=== PATIENT | male | born 1950 | race Caucasian/White ===

== ENCOUNTER 2017-04-04 14:28 | Inpatient (IN) | payer OTHER, MEDICARE ==
[~2017-04-04] VITALS: Ht 5703.2 cm; Wt 102.3 kg
[~2017-04-04 14:28] MED LIST: ATEN25TA PO; BUSP15TA12 PO; CITA40TA22 PO; DOCU100C40 PO; LEVO175T2 PO; LISI-604 PO; LORA0.5T PO; MAGN420T PO; METF1000 PO; RANI300C PO; SIMV20TA5 PO; TRAZ-143 PO
[2017-04-04 15:09] LABS: BASOPHILS % (AUTO) 0.7 % (0-1); EOSINOPHILS # (AUTO) 0.1 X10'3 (0-0.9); EOSINOPHILS % (AUTO) 1.8 % (0-6); HEMATOCRIT 36.7 % (42.0-52.0); HEMOGLOBIN 12.2 g/dl (14.0-17.9); LYMPHOCYTES # (AUTO) 1.7 X10'3 (1.1-4.8); LYMPHOCYTES % (AUTO) 25.4 % (21-51); MEAN CORPUSCULAR HEMOGLOBIN 31.8 PG (27.0-31.0); MEAN CORPUSCULAR HGB CONC 33.3 % (33.0-36.5); MEAN CORPUSCULAR VOLUME 95.5 FL (78-98); MEAN PLATELET VOLUME 6.7 FL (7.4-10.4); MONOCYTES # (AUTO) 0.7 X10'3 (0-0.9); MONOCYTES % (AUTO) 11.3 % (2-12); NEUTROPHILS % (AUTO) 60.8 % (42-75); PLATELET COUNT 234 X10'3 (140-440); RED BLOOD COUNT 3.84 X10'6 (4.70-6.10); RED CELL DISTRIBUTION WIDTH 13.3 % (11.5-14.5); WHITE BLOOD COUNT 6.6 X10'3 (4.5-11.0)
[2017-04-04] MEDS ORDERED: aspirin 81mg tab.chew PO ONE (15:20)
[2017-04-04] MEDS ORDERED: nitroGLYCERIN 0.4mg SUBLingual tab SL PRN ×2 (15:20→16:00)
[2017-04-04 15:25] LABS: ALANINE AMINOTRANSFERASE 27 U/L (12-78); ALBUMIN 3.5 G/DL (3.4-5.0); ALBUMIN/GLOBULIN RATIO 0.8 (1.1-1.5); ALKALINE PHOSPHATASE 80 IU/L (46-116); ANION GAP 4 (8-16); ASPARTATE AMINO TRANSFERASE 12 U/L (10-37); BILIRUBIN,TOTAL 0.2 MG/DL (0.1-1.0); BLOOD UREA NITROGEN 18 MG/DL (7-18); BUN/CREATININE RATIO 17.6 (5.4-32.0); CALCIUM 9.3 MG/DL (8.5-10.1); CHLORIDE 106 MMOL/L (99-107); CREATININE 1.02 MG/DL (0.60-1.10); GLUCOSE 115 MG/DL (70-104); POTASSIUM 4.3 MMOL/L (3.5-5.1); SODIUM 140 MMOL/L (135-145); TOTAL CARBON DIOXIDE 30.4 MMOL/L (24-32); TOTAL PROTEIN 7.7 G/DL (6.4-8.2); eGFR 73 ML/MIN
[2017-04-04 15:31] LABS: MAGNESIUM 1.9 MG/DL (1.5-2.4)
[2017-04-04] MEDS: nitroGLYCERIN 0.4mg SUBLingual tab SL PRN ×2 (15:42→16:17)
[2017-04-04] MEDS ORDERED: aminophylline 250mg/10ml inj. IV PRN (16:00)
[2017-04-04] MEDS ORDERED: ondansetron/PF 4mg/2ml inj IV PRN (16:00)
[2017-04-04] MEDS ORDERED: magnesium Cl slow-release 64mg tablet PO PRN (16:00)
[2017-04-04] MEDS ORDERED: insulin Lispro (HumaLOG) vial - multi-dose SQ SCH (16:00)
[2017-04-04] MEDS ORDERED: magnesium 4gm in 100ml NS 100 ML IV PRN (16:00)
[2017-04-04] MEDS ORDERED: dextrose ORAL solution 15 GM/59 ML bottle PO PRN ×2 (16:00)
[2017-04-04] MEDS ORDERED: MESSAGE TO PHARMACY PO ONE (16:00)
[2017-04-04] MEDS ORDERED: magnesium 2GM in 50ml NS 50 ML IV PRN (16:00)
[2017-04-04] MEDS ORDERED: metoprolol tartrate 1mg/ml inj IV PRN (16:00)
[2017-04-04] MEDS ORDERED: acetaminophen 325mg tablet PO PRN (16:00)
[2017-04-04] MEDS ORDERED: HYDROcodone/acetaminophen 10/325mg tab PO PRN (16:00)
[2017-04-04] MEDS ORDERED: dextrose 50%-water 50ml dispensing syringe IV PRN ×2 (16:00)
[2017-04-04] MEDS ORDERED: HYDROcodone/acetaminophen 5mg/325mg tablet PO PRN (16:00)
[2017-04-04] MEDS ORDERED: regadenoson 0.4mg/5ml syringe IV PRN (16:00)
[2017-04-04] MEDS ORDERED: HYDROmorphone 1 mg/ml syringe IV PRN ×2 (16:00)
[2017-04-04] MEDS ORDERED: mag hydrox/Alum hydrox/simeth 30ml oral suspension PO PRN (16:00)
[2017-04-04] MEDS ORDERED: potassium Cl 40MEQ/NS 500ml 500 ML IV PRN ×2 (16:00)
[2017-04-04] MEDS ORDERED: magnesium hydroxide 30ml (MOM) UD suspension PO PRN (16:00)
[2017-04-04] MEDS ORDERED: potassium Cl 20 mEq SR tablet PO PRN ×2 (16:00)
[2017-04-04] MEDS ORDERED: glucagon, human recombinant 1mg kit SUBCUT PRN (16:00)
[2017-04-04 17:09] LABS: D-DIMER < 0.19 MG/L FEU (0-0.50)
[2017-04-04] MEDS ORDERED: OXYC-658 PO (18:40)
[2017-04-04] MEDS ORDERED: NITR0.4T51 SL (18:40)
[2017-04-04] MEDS ORDERED: MORP30TA PO (18:40)
[2017-04-04] MEDS ORDERED: VITA400C65 (18:40)
[2017-04-04] MEDS: metoprolol tartrate 25mg tablet PO SCH (20:06)
[2017-04-04 20:40] VITALS: BP 119/65
[2017-04-04] MEDS ORDERED: atorvastatin 10mg tablet PO SCH (21:00)
[2017-04-04] MEDS ORDERED: Insulin Detemir pen SQ SCH (21:00)
[2017-04-04] MEDS ORDERED: traZODone 50mg tablet PO SCH (21:00)
[2017-04-04] MEDS ORDERED: famotidine 20mg tablet PO SCH (21:00)
[2017-04-04] MEDS ORDERED: citalopram 20mg tablet PO SCH (21:00)
[2017-04-04] MEDS: busPIRone 15mg tablet PO SCH (21:52)
[2017-04-04] MEDS ORDERED: oxyCODONE IR 5mg (immed. release) tablet PO PRN (22:20)
[2017-04-04 23:00] VITALS: BP 97/54
[2017-04-05] VITALS (10 sets, daily range): BP systolic 95–114; BP diastolic 51–74
[2017-04-05 03:03] LABS: BASOPHILS % (AUTO) 0.6 % (0-1); EOSINOPHILS # (AUTO) 0.1 X10'3 (0-0.9); EOSINOPHILS % (AUTO) 2.7 % (0-6); HEMATOCRIT 35.3 % (42.0-52.0); HEMOGLOBIN 11.9 g/dl (14.0-17.9); LYMPHOCYTES # (AUTO) 1.6 X10'3 (1.1-4.8); LYMPHOCYTES % (AUTO) 37.4 % (21-51); MEAN CORPUSCULAR HGB CONC 33.8 % (33.0-36.5); MEAN CORPUSCULAR VOLUME 94.8 FL (78-98); MEAN PLATELET VOLUME 6.8 FL (7.4-10.4); MONOCYTES # (AUTO) 0.6 X10'3 (0-0.9); MONOCYTES % (AUTO) 12.7 % (2-12); NEUTROPHILS % (AUTO) 46.6 % (42-75); PLATELET COUNT 214 X10'3 (140-440); RED BLOOD COUNT 3.72 X10'6 (4.70-6.10); RED CELL DISTRIBUTION WIDTH 13.3 % (11.5-14.5); WHITE BLOOD COUNT 4.4 X10'3 (4.5-11.0)
[2017-04-05 03:20] LABS: ALBUMIN 3.2 G/DL (3.4-5.0); ANION GAP 7 (8-16); BLOOD UREA NITROGEN 16 MG/DL (7-18); BUN/CREATININE RATIO 16.5 (5.4-32.0); CALCIUM 8.7 MG/DL (8.5-10.1); CHLORIDE 105 MMOL/L (99-107); CREATININE 0.97 MG/DL (0.60-1.10); GLUCOSE 103 MG/DL (70-104); MAGNESIUM 1.9 MG/DL (1.5-2.4); POTASSIUM 3.8 MMOL/L (3.5-5.1); SODIUM 140 MMOL/L (135-145); TOTAL CARBON DIOXIDE 28.3 MMOL/L (24-32); eGFR 77 ML/MIN
[2017-04-05] MEDS: busPIRone 15mg tablet PO SCH ×2 (07:52→13:00)
[2017-04-05] MEDS: metoprolol tartrate 25mg tablet PO SCH (07:53)
[2017-04-05] MEDS ORDERED: magnesium oxide 400mg tablet PO SCH (08:00)
[2017-04-05] MEDS ORDERED: docusate sod 100mg capsule PO SCH (08:00)
[2017-04-05] MEDS ORDERED: morphine IR (immed. release) 30mg tablet PO SCH (08:00)
[2017-04-05] MEDS ORDERED: LORazepam 0.5 MG tablet PO SCH (08:00)
[2017-04-05] MEDS ORDERED: K and/or MAG REPLACEMENT MC SCH (08:00)
[2017-04-05] MEDS ORDERED: enoxaparin 40mg/0.4ml syringe SUBCUT SCH (08:00)
[2017-04-05] MEDS ORDERED: lisinopril 5mg tablet PO SCH (08:00)
[2017-04-05] MEDS ORDERED: morphine ER 30mg tablet PO SCH (08:00)
[2017-04-05] MEDS ORDERED: levoTHYROXINE 175mcg tablet PO SCH (08:00)
[2017-04-05] MEDS ORDERED: aspirin 325mg tablet PO SCH (08:30)
[2017-04-05] MEDS ORDERED: regadenoson 0.4mg/5ml syringe IV ONE (09:16)
[2017-04-05] MEDS ORDERED: aminophylline inj. 0 ML IV ONE (09:16)
== END 2017-04-05 14:02 | disposition home or self-care (01) | DRG 313 ==
LOC: ER 14:28 → ED HOLD 16:06 → PCU 3S 20:30
PROVIDERS: ADMIT Internal Medicine; ATTEND Internal Medicine
PROC: 4A02XM4 Measurement of Cardiac Total Activity, External Approach (ICD-10-PCS; principal; 2017-04-05)
PROC: 3E073KZ Introduction of Other Diagnostic Substance into Coronary Artery, Percutaneous Approach (ICD-10-PCS; 2017-04-05)
DX: R07.89 Other chest pain (principal); I25.2 Old myocardial infarction; E03.9 Hypothyroidism, unspecified; E11.9 Type 2 diabetes mellitus without complications; E78.5 Hyperlipidemia, unspecified; F41.8 Other specified anxiety disorders; G89.29 Other chronic pain; M54.9 Dorsalgia, unspecified; I10 Essential (primary) hypertension; K21.9 Gastro-esophageal reflux disease without esophagitis; Z79.899 Other long term (current) drug therapy; Z79.84 Long term (current) use of oral hypoglycemic drugs; Z87.442 Personal history of urinary calculi
CPT/HCPCS: 36415; 71010; 78452; 80048; 80053; 82948; 83036; 83735; 83880; 84484; 85025; 85379; 85610; 87070; 93017; 93306; 99285; A9500; J0280; J1650; J2785; J7030

== ENCOUNTER 2021-02-22 12:34 | Emergency (ER) | payer OTHER, MEDICARE ==
[~2021-02-22] VITALS: Ht 170.2 cm; Wt 118.2 kg
[~2021-02-22 12:34] MED LIST changes: -ATEN25TA PO; -BUSP15TA12 PO; +BUSP15TA7 PO; -DOCU100C40 PO; -LISI-604 PO; +LISI5TAB22 PO; +MORP30TA PO; +NITR0.4T51 SL; +OXYC-658 PO; +SIMV-42 PO; -SIMV20TA5 PO; -TRAZ-143 PO; +TRAZ-251 PO; +VITA-134
[2021-02-22 14:13] VITALS: BP 126/78
--- NOTE | 2021-02-22 14:19 | NUR ---
Brought in by his grandson. Pt c/o new onset L calf pain after a [address] Denies new SOB.
[2021-02-22] MEDS ORDERED: HYDR-3568 PO (14:34)
[2021-02-22] MEDS ORDERED: CALC-492 PO (14:34)
--- NOTE | 2021-02-22 15:31 | NUR ---
Pt and grandson given and understands d/c instructions. Ambulatory with a cane.
== END 2021-02-22 15:33 | disposition home or self-care (01) ==
LOC: ER 12:35
DX: M79.662 Pain in left lower leg (principal); I25.2 Old myocardial infarction; Z87.442 Personal history of urinary calculi; Z79.899 Other long term (current) drug therapy
CPT/HCPCS: 93971; 99284

== ENCOUNTER 2021-11-23 14:52 | Observation (INO) | payer OTHER, MEDICARE ==
[~2021-11-23] VITALS: Ht 170.2 cm; Wt 114.0 kg
[~2021-11-23 14:52] MED LIST changes: +CALC-492 PO; +HYDR-3568 PO; -MAGN420T PO; -METF1000 PO; -MORP30TA PO; -NITR0.4T51 SL
--- NOTE | 2021-11-23 15:20 | NUR ---
Labs drawn and sent to lab.
[2021-11-23 15:29] LABS: BASOPHILS % (AUTO) 0.8 % (0-1); EOSINOPHILS # (AUTO) 0.1 X10'3 (0-0.9); EOSINOPHILS % (AUTO) 2.7 % (0-6); HEMATOCRIT 41.9 % (42.0-52.0); HEMOGLOBIN 14.7 g/dl (14.0-17.9); LYMPHOCYTES # (AUTO) 1.8 X10'3 (1.1-4.8); LYMPHOCYTES % (AUTO) 33.3 % (21-51); MEAN CORPUSCULAR HEMOGLOBIN 35.5 PG (27.0-31.0); MEAN CORPUSCULAR VOLUME 101.4 FL (78-98); MEAN PLATELET VOLUME 6.5 FL (7.4-10.4); MONOCYTES # (AUTO) 0.8 X10'3 (0-0.9); MONOCYTES % (AUTO) 14.3 % (2-12); NEUTROPHILS # (AUTO) 2.7 X10'3 (1.8-7.7); NEUTROPHILS % (AUTO) 48.9 % (42-75); PLATELET COUNT 208 X10'3 (140-440); RED BLOOD COUNT 4.14 X10'6 (4.70-6.10); RED CELL DISTRIBUTION WIDTH 13.8 % (11.5-14.5); WHITE BLOOD COUNT 5.5 X10'3 (4.5-11.0)
[2021-11-23 15:43] LABS: ALANINE AMINOTRANSFERASE 46 U/L (12-78); ALBUMIN 3.9 G/DL (3.4-5.0); ALBUMIN/GLOBULIN RATIO 1.1 (1.1-1.5); ALKALINE PHOSPHATASE 58 IU/L (46-116); ANION GAP 11 (8-16); ASPARTATE AMINO TRANSFERASE 24 U/L (10-37); BILIRUBIN,TOTAL 0.3 MG/DL (0.1-1.0); BLOOD UREA NITROGEN 24 MG/DL (7-18); BUN/CREATININE RATIO 13.3 (5.4-32.0); CALCIUM 9.3 MG/DL (8.5-10.1); CHLORIDE 105 MMOL/L (99-107); GLUCOSE 108 MG/DL (70-104); POTASSIUM 3.9 MMOL/L (3.5-5.1); SODIUM 143 MMOL/L (135-145); TOTAL CARBON DIOXIDE 26.7 MMOL/L (24-32); TOTAL PROTEIN 7.5 G/DL (6.4-8.2); eGFR 37 ML/MIN
[2021-11-23] MEDS ORDERED: ONDA-104 PO (15:48)
[2021-11-23] MEDS ORDERED: LENA10CA PO (15:48)
[2021-11-23] MEDS ORDERED: ASPI-1264 PO (15:48)
[2021-11-23] MEDS ORDERED: HYDR-3968 PO (15:48)
[2021-11-23] MEDS ORDERED: GABA-530 PO (15:48)
[2021-11-23] MEDS ORDERED: PROC10TA10 PO (15:48)
[2021-11-23] MEDS ORDERED: DULO-31 PO (15:48)
[2021-11-23] MEDS ORDERED: ZOLP5TAB8 PO (15:48)
[2021-11-23] MEDS ORDERED: METO-539 PO (15:48)
[2021-11-23] MEDS ORDERED: BUSP10TA11 PO (15:48)
[2021-11-23] MEDS ORDERED: ATOR10TA87 PO (15:48)
[2021-11-23] MEDS ORDERED: FAMO40TA58 PO (15:48)
[2021-11-23] MEDS ORDERED: morphine 2 MG/ML inj. syringe IV PRN ×2 (16:10)
[2021-11-23] MEDS ORDERED: HYDROcodone/acetaminophen 5mg/325mg tablet PO PRN (16:10)
[2021-11-23] MEDS ORDERED: acetaminophen 325mg tablet PO PRN (16:10)
[2021-11-23] MEDS ORDERED: magnesium hydroxide 30ml (MOM) UD suspension PO PRN (16:10)
[2021-11-23] MEDS ORDERED: mag hydrox/Alum hydrox/simeth 30ml oral suspension PO PRN (16:10)
[2021-11-23 16:28] LABS: HEMOGLOBIN A1C 5.7 % (4.5-6.2)
[2021-11-23] MEDS ORDERED: sodium bicarbonate (8.4%) inj. 150 MEQ in sodium chloride 0.45% 850 ML IV SCH (19:05)
[2021-11-23] MEDS: sodium bicarbonate (8.4%) inj. 150 MEQ in sodium chloride 0.45% 1,000 ML IV SCH ×2 (19:09→23:07)
--- NOTE | 2021-11-23 19:23 | NUR ---
Pt seen by Dr. Cerrato. to take Pt to [facility] tomorrow morning. MD gave verbal orders for Pt to be NPO after midnight, PBNP to be run with morning labs before procedure, Mucomyst 600 mg PO BID with first dose to start tonight, and Sodium Bicarb 150 mEq in 1/2 NS to run at 100 ml/hr, and patient to sign record label internship consent.
[2021-11-23] MEDS: acetylcysteine 200 MG/ml 4ml vial PO SCH ×2 (20:00→23:07)
[2021-11-23 21:30] VITALS: BP 146/91
[2021-11-23] MEDS: docusate sod 100mg capsule PO SCH (23:10)
[2021-11-24] VITALS (15 sets, daily range): BP systolic 92–139; BP diastolic 39–81
[2021-11-24] MEDS ORDERED: LEVO25TA7 PO (01:35)
[2021-11-24] MEDS ORDERED: FLO0.4C PO (01:35)
[2021-11-24] MEDS ORDERED: TRAZ300T2 PO (01:35)
[2021-11-24] MEDS ORDERED: TRAZ150T78 PO (01:35)
[2021-11-24] MEDS ORDERED: MORP-92 PO (01:35)
[2021-11-24] MEDS ORDERED: BUSP15TA3 PO (01:35)
[2021-11-24] MEDS ORDERED: METO-467 PO (01:35)
[2021-11-24] MEDS ORDERED: MULT-1085 PO (01:35)
[2021-11-24] MEDS ORDERED: GABA300C PO (01:35)
[2021-11-24] MEDS ORDERED: THIA100T70 PO (01:35)
[2021-11-24] MEDS ORDERED: CYCL-394 PO (01:35)
[2021-11-24 07:30] LABS: BASOPHILS % (AUTO) 0.8 % (0-1); EOSINOPHILS # (AUTO) 0.2 X10'3 (0-0.9); EOSINOPHILS % (AUTO) 4.4 % (0-6); HEMATOCRIT 40.2 % (42.0-52.0); HEMOGLOBIN 13.6 g/dl (14.0-17.9); LYMPHOCYTES # (AUTO) 1.5 X10'3 (1.1-4.8); LYMPHOCYTES % (AUTO) 35.6 % (21-51); MEAN CORPUSCULAR HEMOGLOBIN 34.6 PG (27.0-31.0); MEAN CORPUSCULAR HGB CONC 33.8 g/dL (33.0-36.5); MEAN CORPUSCULAR VOLUME 102.3 FL (78-98); MEAN PLATELET VOLUME 7.4 FL (7.4-10.4); MONOCYTES # (AUTO) 0.6 X10'3 (0-0.9); NEUTROPHILS # (AUTO) 1.9 X10'3 (1.8-7.7); NEUTROPHILS % (AUTO) 45.2 % (42-75); PLATELET COUNT 201 X10'3 (140-440); RED BLOOD COUNT 3.93 X10'6 (4.70-6.10); RED CELL DISTRIBUTION WIDTH 14.1 % (11.5-14.5); WHITE BLOOD COUNT 4.3 X10'3 (4.5-11.0)
[2021-11-24 07:53] LABS: ALBUMIN 3.5 G/DL (3.4-5.0); ANION GAP 12 (8-16); BLOOD UREA NITROGEN 23 MG/DL (7-18); CALCIUM 8.8 MG/DL (8.5-10.1); CHLORIDE 105 MMOL/L (99-107); CHOL/HDL RATIO 3.5 (0.00-4.99); CHOLESTEROL 163 MG/DL (0-200); CREATININE 1.64 MG/DL (0.60-1.10); GLUCOSE 106 MG/DL (70-104); HDL CHOLESTEROL 47 MG/DL (35-60); LDL CHOLESTEROL 96 MG/DL (50-100); POTASSIUM 3.8 MMOL/L (3.5-5.1); SODIUM 147 MMOL/L (135-145); TOTAL CARBON DIOXIDE 29.9 MMOL/L (24-32); TRIGLYCERIDES 151 MG/DL (20-135); eGFR 42 ML/MIN
[2021-11-24] MEDS ORDERED: verapamil 2.5 mg/ml inj IV ONE (09:00)
[2021-11-24] MEDS ORDERED: nitroGLYCERIN-Tridil 50MG/D5W 250 ML IV ONE (09:00)
[2021-11-24] MEDS ORDERED: midazolam 1 mg/ML 2ml injection ONE (09:00)
[2021-11-24] MEDS ORDERED: fentaNYL/PF 50MCG/1 ML 2ML syringe ONE (09:00)
[2021-11-24] MEDS ORDERED: heparin 1,000unit/ml 10ml vial 10 ML ONE (09:01)
[2021-11-24] MEDS ORDERED: iohexol 350MG/ML 100ml bottle IV ONE (09:01)
[2021-11-24] MEDS ORDERED: LIDOcaine 1% 30ml preserv. free vial ONE (09:01)
[2021-11-24] MEDS: ondansetron/PF 4mg/2ml inj IV PRN (09:04)
[2021-11-24] MEDS: docusate sod 100mg capsule PO SCH ×2 (09:04→20:44)
[2021-11-24] MEDS: acetylcysteine 200 MG/ml 4ml vial PO SCH ×2 (09:04→20:00)
[2021-11-24] MEDS ORDERED: heparin 25,000 UNIT/250ml bag 250 ML IV ONE ×2 (10:13→10:14)
[2021-11-24] MEDS ORDERED: clopidogrel 300mg tablet ONE (10:28)
--- NOTE | 2021-11-24 12:16 | NUR ---
Contacted Dr. Newell 1999Q E.W. Post cath HR rate is sustaining in the low 50s. B/P sys 100-90s. Pre cath HR in 80s and B/P in 110-140s. Tiffanie U.
--- NOTE | 2021-11-24 12:31 | NUR ---
Contacted Dr. Cerrato about HR in the low 50s - High 40s, B/P in low 100s - High 90s. Will continue to monitor for changes and home medication will be modified.
--- NOTE | 2021-11-24 12:34 | NUR ---
Dr. handley at bedside with patient. Will continue to monitor HR and B/P. Will contact if B/P drops below 80/60 and give 500ml bolus. MD will adjust home medications.
[2021-11-24] MEDS: normal saline 1000ml 1,000 ML IV SCH ×2 (14:08→22:20)
[2021-11-24] MEDS ORDERED: non-formulary drug (Hydrocodone Bit/Acetaminophen (Hydrocodon-Acetaminoph 7.5-325) 1 TAB) PO SCH (14:50)
[2021-11-24] MEDS ORDERED: traZODone 150mg tablet PO PRN ×2 (14:50→15:10)
[2021-11-24] MEDS ORDERED: cyclobenzaprine 10mg tablet PO PRN (14:50)
[2021-11-24] MEDS ORDERED: sodium bicarbonate (8.4%) inj. 150 MEQ in sodium chloride 0.45% 1,000 ML IV SCH (15:40)
[2021-11-24] MEDS: ondansetron 4mg rapidly disintigrating tab PO SCH (16:00)
[2021-11-24] MEDS: sodium bicarbonate (8.4%) inj. 150 MEQ in water for injection, sterile 1,000 ML IV SCH (17:05)
[2021-11-24] MEDS: metoprolol tartrate 50mg tablet PO SCH (20:44)
[2021-11-24] MEDS: gabapentin 300mg capsule PO SCH (20:44)
[2021-11-24] MEDS: busPIRone 15mg tablet PO SCH (20:44)
[2021-11-24] MEDS: morphine ER 15mg tablet PO SCH (20:45)
[2021-11-24] MEDS: proCHLORperazine 10mg tablet PO SCH (20:47)
[2021-11-25] MEDS: proCHLORperazine 10mg tablet PO SCH ×2 (02:00→08:10)
[2021-11-25 03:30] VITALS: BP 124/71
[2021-11-25] MEDS: sodium bicarbonate (8.4%) inj. 150 MEQ in water for injection, sterile 1,000 ML IV SCH (03:49)
[2021-11-25] MEDS: ondansetron/PF 4mg/2ml inj IV PRN (04:20)
[2021-11-25 06:00] VITALS: BP 99/55
[2021-11-25 07:30] VITALS: BP 108/43
[2021-11-25 07:42] LABS: BASOPHILS % (AUTO) 0.8 % (0-1); EOSINOPHILS # (AUTO) 0.1 X10'3 (0-0.9); EOSINOPHILS % (AUTO) 2.3 % (0-6); HEMATOCRIT 37.9 % (42.0-52.0); HEMOGLOBIN 12.9 g/dl (14.0-17.9); LYMPHOCYTES # (AUTO) 1.6 X10'3 (1.1-4.8); LYMPHOCYTES % (AUTO) 28.8 % (21-51); MEAN CORPUSCULAR HEMOGLOBIN 34.7 PG (27.0-31.0); MEAN CORPUSCULAR VOLUME 102.1 FL (78-98); MEAN PLATELET VOLUME 6.9 FL (7.4-10.4); MONOCYTES # (AUTO) 0.8 X10'3 (0-0.9); MONOCYTES % (AUTO) 14.2 % (2-12); NEUTROPHILS % (AUTO) 53.9 % (42-75); PLATELET COUNT 204 X10'3 (140-440); RED BLOOD COUNT 3.71 X10'6 (4.70-6.10); RED CELL DISTRIBUTION WIDTH 13.6 % (11.5-14.5); WHITE BLOOD COUNT 5.6 X10'3 (4.5-11.0)
[2021-11-25] MEDS ORDERED: atorvastatin 20mg tablet PO SCH (08:00)
[2021-11-25] MEDS ORDERED: multivitamins, therapeutics tablet PO SCH (08:00)
[2021-11-25] MEDS ORDERED: levoTHYROXINE 25mcg tablet PO SCH (08:00)
[2021-11-25] MEDS ORDERED: tamsulosin 0.4mg capsule PO SCH (08:00)
[2021-11-25] MEDS ORDERED: LENALIDOMIDE 10 MG PO SCH (08:00)
[2021-11-25] MEDS ORDERED: thiamine 100mg tablet PO SCH (08:00)
[2021-11-25] MEDS ORDERED: duloxetine 30mg CAPSULE.DR PO SCH (08:00)
[2021-11-25] MEDS: metoprolol tartrate 50mg tablet PO SCH (08:00)
[2021-11-25] MEDS ORDERED: clopidogrel 75mg tablet PO SCH (08:00)
[2021-11-25] MEDS ORDERED: aspirin 81mg, enteric-coated 1 TAB TABLET.DR PO SCH (08:00)
[2021-11-25 08:01] LABS: ALBUMIN 3.2 G/DL (3.4-5.0); ANION GAP 12 (8-16); BLOOD UREA NITROGEN 18 MG/DL (7-18); BUN/CREATININE RATIO 12.3 (5.4-32.0); CALCIUM 8.4 MG/DL (8.5-10.1); CHLORIDE 106 MMOL/L (99-107); CREATININE 1.46 MG/DL (0.60-1.10); GLUCOSE 94 MG/DL (70-104); POTASSIUM 3.8 MMOL/L (3.5-5.1); SODIUM 147 MMOL/L (135-145); TOTAL CARBON DIOXIDE 28.7 MMOL/L (24-32); eGFR 48 ML/MIN
[2021-11-25] MEDS: acetylcysteine 200 MG/ml 4ml vial PO SCH (08:09)
[2021-11-25] MEDS: busPIRone 15mg tablet PO SCH (08:10)
[2021-11-25] MEDS: ondansetron 4mg rapidly disintigrating tab PO SCH ×2 (08:10)
[2021-11-25] MEDS: morphine ER 15mg tablet PO SCH (08:10)
[2021-11-25] MEDS: gabapentin 300mg capsule PO SCH (08:12)
[2021-11-25] MEDS: docusate sod 100mg capsule PO SCH (08:12)
[2021-11-25 10:30] VITALS: BP 102/61
[2021-11-25 11:00] VITALS: BP 104/52
[2021-11-25] MEDS ORDERED: CLOP75TA34 PO (11:49)
[2021-11-25] MEDS ORDERED: ATOR20TA66 PO (11:49)
[2021-11-25] MEDS ORDERED: ASPI-1265 PO (11:49)
--- NOTE | 2021-11-25 12:22 | NUR ---
Patient ready for discharge and uses the [facility] for his prescriptions. Unable to escribe his medications over and paper prescriptions given to patient. Instructed patient on the importance of filling his prescriptions and needing to pick them up first thing tomorrow. Patient educated on all of his medications but a lot of emphasis was given on taking the plavix since patient just had a stent placed yesterday. Patient and family verbalized understanding. Addendum: 11/25/21 at 1225 by Maude Valiente RN Amended: Links added.
--- NOTE | 2021-11-25 13:06 | NUR ---
Patient cleared for discharge. Patient aox4, vitals stable, denies pain. Patient's IVs discontinued. Patient and family verbalized understanding of discharge instructions and prescriptions. Patient gathered all belongings. Patient left via wheelchair in private vehicle with family
[2021-11-26 06:07] LABS: ISTAT Hct MIX 40 %PCV (42-52); ISTAT O2 SATURATION MIX VENOUS 61 % (60-80); ISTAT SOURCE BLNK
[2021-11-26 06:07] LABS: ISTAT HGB ART 13.9 g/dl (14.0-18.0); ISTAT Hct ART 41 %PCV (42-52); ISTAT O2 SATURATION ARTERIAL 95 % (95-98); ISTAT SOURCE BLNK
== END 2021-11-25 12:54 | disposition home or self-care (01) ==
LOC: ER 14:53 → ED HOLD 16:10 → PCU 3S 20:20
PROVIDERS: ADMIT Internal Medicine; ATTEND Internal Medicine
DX: I25.110 Atherosclerotic heart disease of native coronary artery with unstable angina pectoris (principal); F41.8 Other specified anxiety disorders; E78.5 Hyperlipidemia, unspecified; E03.9 Hypothyroidism, unspecified; G47.00 Insomnia, unspecified; E66.01 Morbid (severe) obesity due to excess calories; I12.9 Hypertensive chronic kidney disease with stage 1 through stage 4 chronic kidney disease, or unspecified chronic kidney disease; N18.30 Chronic kidney disease, stage 3 unspecified; G89.4 Chronic pain syndrome; K21.9 Gastro-esophageal reflux disease without esophagitis; C90.00 Multiple myeloma not having achieved remission; G25.0 Essential tremor; G47.33 Obstructive sleep apnea (adult) (pediatric); G62.9 Polyneuropathy, unspecified; I25.2 Old myocardial infarction; Z68.41 Body mass index [BMI] 40.0-44.9, adult; Z79.899 Other long term (current) drug therapy; Z87.891 Personal history of nicotine dependence; Z87.442 Personal history of urinary calculi
CPT/HCPCS: 36415; 71045; 76937; 80048; 80053; 80061; 82803; 83036; 83880; 84484; 85014; 85025; 85347; 87081; 93005; 93460; 96365; 96366; 96375; 99285; C1725; C1751; C1769; C1874; C1894; C9600; G0378; J1644; J2250; J2405; J3010; J3490; J7030; Q0164; Q9967; 99152; 99153; A4615; A4620; A5120; A6258

== ENCOUNTER 2023-02-07 10:11 | Day surgery (SDC) | payer MEDICARE, OTHER ==
[2023-02-06 12:34] LABS: BASOPHILS # (AUTO) 0.1 X10'3 (0-0.2); BASOPHILS % (AUTO) 1.2 % (0-1); EOSINOPHILS # (AUTO) 0.1 X10'3 (0-0.9); EOSINOPHILS % (AUTO) 1.7 % (0-6); HEMATOCRIT 42.4 % (42.0-52.0); HEMOGLOBIN 14.3 g/dl (14.0-17.9); LYMPHOCYTES # (AUTO) 2.3 X10'3 (1.1-4.8); LYMPHOCYTES % (AUTO) 36.6 % (21-51); MEAN CORPUSCULAR HEMOGLOBIN 33.3 PG (27.0-31.0); MEAN CORPUSCULAR HGB CONC 33.7 g/dL (33.0-36.5); MEAN CORPUSCULAR VOLUME 98.6 FL (78-98); MEAN PLATELET VOLUME 6.5 FL (7.4-10.4); MONOCYTES # (AUTO) 0.6 X10'3 (0-0.9); MONOCYTES % (AUTO) 9.6 % (2-12); NEUTROPHILS # (AUTO) 3.2 X10'3 (1.8-7.7); NEUTROPHILS % (AUTO) 50.9 % (42-75); PLATELET COUNT 237 X10'3 (140-440); RED CELL DISTRIBUTION WIDTH 13.6 % (11.5-14.5); WHITE BLOOD COUNT 6.2 X10'3 (4.5-11.0)
[2023-02-06 12:49] LABS: APTT 28 SECONDS (22-32); INR 0.9 INR; PROTHROMBIN TIME 10.2 SECONDS (9.0-12.0)
[2023-02-06 12:58] LABS: ALBUMIN 3.6 G/DL (3.4-5.0); ANION GAP 9 (8-16); BLOOD UREA NITROGEN 26 MG/DL (7-18); BUN/CREATININE RATIO 16.1 (10.0-20.0); CALCIUM 8.8 MG/DL (8.5-10.1); CHLORIDE 103 MMOL/L (99-107); CHOL/HDL RATIO 3.6 (0.00-4.99); CHOLESTEROL 167 MG/DL (0-200); CREATININE 1.61 MG/DL (0.60-1.10); GLUCOSE 129 MG/DL (70-104); HDL CHOLESTEROL 47 MG/DL (35-60); LDL CHOLESTEROL 104 MG/DL (50-100); SODIUM 138 MMOL/L (135-145); TOTAL CARBON DIOXIDE 26.4 MMOL/L (24-32); TRIGLYCERIDES 139 MG/DL (20-135); eGFR 42 ML/MIN
[2023-02-07] VITALS (9 sets, daily range): BP systolic 121–142; BP diastolic 62–85; PULSE 58–71; RESP 11–20; TEMP 98.1; O2SAT 92–95
[~2023-02-07] VITALS: Ht 172.7 cm; Wt 117.3 kg
[~2023-02-07 10:11] MED LIST changes: +ATOR20TA66 PO; +BUSP15TA3 PO; -BUSP15TA7 PO; -CALC-492 PO; -CITA40TA22 PO; +CLOP75TA34 PO; +CYCL-394 PO; +DULO-31 PO; +FLO0.4C PO; +GABA300C PO; -HYDR-3568 PO; +HYDR-3968 PO; +LENA10CA PO; -LEVO175T2 PO; +LEVO25TA7 PO; -LISI5TAB22 PO; -LORA0.5T PO; +METO-467 PO; +MORP-92 PO; +MULT-1085 PO; +ONDA-104 PO; -OXYC-658 PO; +PROC10TA97 PO; -RANI300C PO; -SIMV-42 PO; +THIA100T70 PO; -TRAZ-251 PO; +TRAZ300T2 PO; -VITA-134
[2023-02-07] MEDS ORDERED: LORazepam 0.5 MG tablet PO PRN (10:50)
[2023-02-07] MEDS ORDERED: normal saline 1,000 ML IV SCH (10:50)
[2023-02-07] MEDS ORDERED: diphenhydrAMINE 25mg capsule PO PRN (10:50)
[2023-02-07] MEDS ORDERED: sodium bicarbonate 1meq/ml syr 150 ML in dextrose 5%-water 1,000 ML IV SCH (10:55)
[2023-02-07] MEDS ORDERED: LORA-269 PO (11:11)
[2023-02-07] MEDS ORDERED: TROS20TA4 PO (11:11)
[2023-02-07] MEDS ORDERED: FAMO20TA8 PO (11:11)
[2023-02-07] MEDS ORDERED: DOCU-395 PO (11:11)
[2023-02-07] MEDS ORDERED: acetylcysteine 200 MG/ml 4ml vial PO PRN (11:35)
[2023-02-07] MEDS ORDERED: midazolam 1 mg/ML 2ml injection ONE (12:45)
[2023-02-07] MEDS ORDERED: fentaNYL/PF 50MCG/1 ML 2ML syringe ONE (12:45)
[2023-02-07] MEDS ORDERED: iohexol 350 MG/ML 50ML vial IV ONE (12:45)
[2023-02-07] MEDS ORDERED: verapamil 2.5 mg/ml inj IV ONE (12:45)
[2023-02-07] MEDS ORDERED: LIDOcaine 1% (10mg/ml)w/preservative inj. 20ml MDV ONE (12:45)
[2023-02-07] MEDS ORDERED: heparin 1,000unit/ml 10ml vial 10 ML ONE (12:46)
[2023-02-07] MEDS ORDERED: iohexol 350MG/ML 100ml bottle IV ONE ×2 (12:46→13:53)
[2023-02-07] MEDS ORDERED: nitroGLYCERIN 500mcg/5mL D5W 5 ML IV ONE (12:46)
[2023-02-07] MEDS ORDERED: LIDOcaine 1% (10mg/ml) 2ml vial ONE (12:46)
== END 2023-02-07 18:00 | disposition home or self-care (01) ==
LOC: SSTAY O 10:11
PROVIDERS: ATTEND Internal Medicine Cardiovascular Disease
DX: I25.119 Atherosclerotic heart disease of native coronary artery with unspecified angina pectoris (principal); I10 Essential (primary) hypertension; E78.5 Hyperlipidemia, unspecified; E11.9 Type 2 diabetes mellitus without complications; G47.33 Obstructive sleep apnea (adult) (pediatric); Z95.5 Presence of coronary angioplasty implant and graft; Z87.891 Personal history of nicotine dependence; Z79.01 Long term (current) use of anticoagulants; Z79.899 Other long term (current) drug therapy; Z79.82 Long term (current) use of aspirin
CPT/HCPCS: 36415; 80048; 80061; 85025; 85610; 85730; 93005; 93458; 99152; 99153; J1644; J2250; J3010; J3490; J7030; J7070; Q0163; Q9967; A6258; A6402; C1725; C1894